=== PATIENT | female | born 1995 | race Caucasian/White ===

== ENCOUNTER 2021-06-19 07:34 | Inpatient (IN) ==
[2021-06-19] MEDS ORDERED: DINOPROSTONE 10 MG INSERT PV ONE (09:30)
[2021-06-19] MEDS ORDERED: OXYTOCIN 30 UNITS/500 ML BAG IV PRN (09:30)
[2021-06-19 10:02] LABS: Hematocrit (blood only) 36.2 % (37-47); Hemoglobin 11.5 g/dL (12.0-16.0); Mean Corpuscular Hemoglobin 28.8 pg (25-34); Mean Corpuscular Hgb Conc 31.8 g/dL (32-36); Mean Corpuscular Volume 90.5 fL (80-100); Mean Platelet Volume 10.8 fL (7.4-10.4); Platelet Count 219 K/uL (130-400); RDW Coefficient of Variation 15.3 % (11.5-14.5); RDW Standard Deviation 50.8 fL (36.4-46.3); White Blood Count 8.84 K/uL (4.8-10.8)
--- NOTE | 2021-06-19 10:58 | Obstetrical Progress Note ---
Date of Service June 19, 2021 Assessment & Plan (1) Post-dates : Plan: Induction for post dates FHR; CAT1 Ctx; Minimal VE; ft/thick/post Cervidil placed in vagina Admission and Anticipated Discharge Date Admission Date: June 19, 2021 Results & Data ([facility]) Vital Signs (Past 12 Hours) Vital Signs Temp Pulse Resp BP 06/19/21 07:57 89 131/81 06/19/21 07:51 36.7 C 18 131/81
--- NOTE | 2021-06-19 23:45 | Obstetrical Progress Note ---
Date of Service June 19, 2021 Assessment & Plan (1) Post-dates : Plan: Induction for post dates Cervidil removed VE; Unchanged pt tolerated pelvic exam poorly and would not do another Cervidil FHR; CAT1 Ctx; Q8-10 min Mild intensity Plan Reevaluate in the AM Admission and Anticipated Discharge Date Admission Date: June 19, 2021 Results & Data ([facility]) Vital Signs (Past 12 Hours) Vital Signs Temp Pulse Resp BP 06/19/21 22:32 36.6 C 75 18 131/85 06/19/21 18:59 36.9 C 18 06/19/21 18:55 36.9 C 86 18 136/74 06/19/21 15:04 36.9 C 85 18 129/75
[2021-06-20] MEDS ORDERED: DINOPROSTONE 10 MG INSERT PV ONE
[2021-06-20] MEDS ORDERED: BUTORPHANOL TARTRATE 1 MG/ML VIAL IV ONE (03:00)
[2021-06-20] MEDS ORDERED: BUTORPHANOL TARTRATE 1 MG/ML VIAL ONE (03:16)
[2021-06-20] MEDS: LACTATED RINGER'S 1,000 ML IV PRN ×5 (06:14→23:54)
[2021-06-20] MEDS ORDERED: BUPIVACAINE 0.25% 30 ML VIAL ONE ×2 (06:21→19:58)
[2021-06-20] MEDS ORDERED: fentaNYL citrate 100 MCG/2 ML VIAL ONE (06:21)
[2021-06-20] MEDS ORDERED: SODIUM CHLORIDE 0.9% INJ 10 ML VIAL ONE (06:21)
[2021-06-20] MEDS ORDERED: ePHEDrine sulfate 50 MG/ML AMP ONE (06:21)
[2021-06-20] MEDS ORDERED: fentaNYL 2MCG/ML ROPIVACAINE 1.25MG/ML 100 ML BAG EPI ONE (06:22)
[2021-06-20] MEDS ORDERED: PROMETHAZINE HCL 6.25 MG in SODIUM CHLORIDE 0.9% 50 ML IV PRN (07:17)
[2021-06-20] MEDS ORDERED: ONDANSETRON INJ 2 MG/ML 2 ML VIAL IV PRN (07:17)
[2021-06-20] MEDS ORDERED: NALOXONE HCL 0.4 MG/1 ML VIAL/CARP IV PRN (07:17)
[2021-06-20] MEDS ORDERED: ePHEDrine sulfate 50 MG/ML AMP IV PRN (07:17)
[2021-06-20] MEDS ORDERED: NALOXONE HCL 1 MG in SODIUM CHLORIDE 0.9% 1000ML 1,000 ML IV PRN (07:17)
[2021-06-20] MEDS ORDERED: NALBUPHINE HCL INJ 10 MG/ML AMP IV PRN (07:17)
[2021-06-20] MEDS ORDERED: diphenhydrAMINE 50 MG/ML VIAL IV PRN (07:17)
--- NOTE | 2021-06-20 07:19 | Anesthesiology Consultation ---
Date of Service June 20, 2021 Assessment & Plan Chart Review Chart Review: Patient NOT seen in Pre Admission Testing and Acceptable Risk for Labor Epidural Consults Requested none ASA ASA2 Proposed Anesthesia Anesthesia Type: Labor Epidural Risk / Benefits Reviewed With: PT / POA / Parent / Guardian, Accepts Plan and Informed Consent Obtained History Height/Weight Height: 5 ft 2 in Weight: 77.564 kg Allergies Allergy/AdvReac Type Severity Reaction Status Date / Time lactose Allergy Severe Unknown Verified 06/19/21 19:28 Medications Home Medications Medication Instructions Recorded Confirmed Last Taken prenat.vits,naz,tyg-uojc-jidol 1 tab PO DAILY 06/19/21 06/19/21 06/17/21 Active Medications Generic Name Dose Route Start Last Admin Trade Name Freq PRN Reason Stop Dose Admin Lactated Ringer's 1,000 mls @ 125 mls/hr 06/19/21 09:30 06/20/21 06:14 Lr IV 06/21/21 09:29 999 mls/hr .Q8H PRN Administration L&D Protocol Protocol Exercise / Class Metabolic Activity II 4-5 Yardwork/Stairs/Walk up hill Past Surgical History Surgical History (Updated 06/19/21 @ 11:34 by Sánchez Mcnamara RN) [place] teeth removed Past Anesthesia History No Hx of Anesthesia Complications and No Family Hx of Anesthesia Complications History of PONV No Hx of PONV and No Hx of Motion Sickness Social History Smoking Status: Former smoker tobacco type: cigarettes Do You Dip or Chew Tobacco: No Hx Alcohol Use: No Hx Substance Use: No Physical Exam Vital Signs Last Vital Signs Temp 36.9 C 06/20/21 06:58 Pulse 92 H 06/20/21 07:13 Resp 20 06/20/21 06:58 BP 129/80 06/20/21 06:58 Pulse Ox 99 06/20/21 07:13 ENMT Mouth: no dentition abnormality Thyromental Distance: > or= 3.5 Finger Breadths Mallampati Class: II Neck normal visual inspection Respiratory normal respiratory effort Auscultation: lungs clear to auscultation bilaterally Cardiovascular Rate/Rhythm: regular rate and regular rhythm Psychiatric Orientation: alert Testing Laboratory Results 06/19/21 09:52
--- NOTE | 2021-06-20 07:56 | Labor Progress Brief Note ---
Date of Service June 20, 2021 Assessment & Plan (1) Post-dates : Plan: Pt doing well Received epidural analgesia FHR; CAT1 CTx. 3-5min, irregular and mild intensity VE; 2/50/-3 Plan start Pitocin augmentation. pt agrees with recommendation Admission and Anticipated Discharge Date Admission Date: June 19, 2021 Results & Data ([facility]) Vital Signs (Past 12 Hours) Vital Signs Temp Pulse Resp BP Pulse Ox 06/20/21 07:52 89 117/65 06/20/21 07:48 101 H 99 06/20/21 07:47 85 122/73 06/20/21 07:43 89 99 06/20/21 07:42 92 H 131/71 06/20/21 07:40 93 H 129/73 06/20/21 07:38 96 H 132/77 98 06/20/21 07:36 105 H 137/85 06/20/21 07:34 85 136/87 06/20/21 07:33 90 98 06/20/21 07:28 108 H 98 06/20/21 07:23 123 H 96 06/20/21 07:18 117 H 100 06/20/21 07:13 92 H 99 06/20/21 07:08 76 99 06/20/21 07:03 85 100 06/20/21 06:58 36.9 C 84 20 129/80 97 06/20/21 06:53 82 97 06/20/21 06:48 88 100 06/20/21 06:43 84 98 06/20/21 06:38 91 H 98 06/20/21 06:33 89 98 06/20/21 06:28 100 H 99 06/20/21 06:23 112 H 100 06/20/21 06:18 104 H 96 06/20/21 06:16 36.4 C L 90 20 125/70 06/20/21 04:32 78 97 06/20/21 04:27 79 96 06/20/21 04:22 82 97 06/20/21 04:17 76 97 06/20/21 04:12 80 96 06/20/21 04:07 85 96 06/20/21 04:02 81 98 06/20/21 03:57 82 96 06/20/21 03:52 81 96 06/20/21 03:47 99 H 99 06/20/21 03:42 81 97 06/20/21 03:37 78 95 06/20/21 03:32 82 96 06/20/21 03:27 99 H 99 06/20/21 03:24 78 18 122/68 06/20/21 03:22 90 98 06/20/21 03:17 98 H 100 06/20/21 02:17 36.6 C 77 18 122/65 06/19/21 22:32 36.6 C 75 18 131/85
[2021-06-20] MEDS ORDERED: OXYTOCIN 30 UNITS/500 ML BAG IV PRN (09:38)
[2021-06-20] MEDS: fentaNYL 2MCG/ML ROPIVACAINE 1.25MG/ML 100 ML BAG EPI PRN ×3 (15:49→23:11)
--- NOTE | 2021-06-20 17:49 | Labor Progress Brief Note ---
Date of Service June 20, 2021 Assessment & Plan Admission and Anticipated Discharge Date Admission Date: June 19, 2021 Physical Exam Genitourinary: Manual OB Exam: + cervical dilation 6 cm, + cervical effacement 80% and + station -1 OB Exam Monitor Tracing: + external FHT monitor used, + external uterine monitor used, + category I and + normal FHT variability Results & Data ([facility]) Vital Signs (Past 12 Hours) Vital Signs Temp Pulse Resp BP Pulse Ox 06/20/21 17:44 83 138/78 06/20/21 17:43 88 99 06/20/21 17:38 84 99 06/20/21 17:33 88 100 06/20/21 17:28 92 H 100 06/20/21 17:23 99 H 100 06/20/21 17:18 92 H 100 06/20/21 17:13 89 142/83 H 100 06/20/21 17:08 88 100 06/20/21 17:03 90 100 06/20/21 16:58 89 99 06/20/21 16:53 87 100 06/20/21 16:48 89 100 06/20/21 16:44 36.8 C 81 18 136/83 06/20/21 16:43 88 98 06/20/21 16:38 78 99 06/20/21 16:33 86 98 06/20/21 16:28 79 98 06/20/21 16:23 83 98 06/20/21 16:18 86 98 06/20/21 16:14 78 20 124/76 06/20/21 16:13 80 98 06/20/21 16:08 87 97 06/20/21 16:03 85 100 06/20/21 15:58 89 99 06/20/21 15:53 88 100 06/20/21 15:48 93 H 100 06/20/21 15:45 93 H 126/86 06/20/21 15:43 82 98 06/20/21 15:38 78 100 06/20/21 15:33 85 100 06/20/21 15:28 83 98 06/20/21 15:23 81 100 06/20/21 15:18 79 100 06/20/21 15:15 85 139/79 06/20/21 15:13 102 H 100 06/20/21 15:12 36.6 C 88 20 151/90 H 06/20/21 15:08 104 H 99 06/20/21 15:03 92 H 98 06/20/21 14:58 85 99 06/20/21 14:53 97 H 100 06/20/21 14:48 90 100 06/20/21 14:44 93 H 123/75 06/20/21 14:43 86 100 06/20/21 14:38 90 100 06/20/21 14:33 98 H 100 06/20/21 14:28 96 H 99 06/20/21 14:23 92 H 100 06/20/21 14:18 97 H 99 06/20/21 14:13 93 H 100 06/20/21 14:08 82 100 06/20/21 14:04 85 20 123/70 06/20/21 14:03 86 100 06/20/21 13:58 86 100 06/20/21 13:53 87 99 06/20/21 13:50 88 130/64 06/20/21 13:48 92 H 100 06/20/21 13:43 80 98 06/20/21 13:38 89 100 06/20/21 13:35 85 114/72 06/20/21 13:33 83 99 06/20/21 13:28 89 100 06/20/21 13:23 87 99 06/20/21 13:19 82 116/73 06/20/21 13:18 83 99 06/20/21 13:13 97 H 98 06/20/21 13:08 97 H 99 06/20/21 13:04 36.9 C 108 H 20 126/79 06/20/21 13:03 103 H 98 06/20/21 12:58 95 H 98 06/20/21 12:53 97 H 98 06/20/21 12:50 95 H 130/78 06/20/21 12:48 99 H 98 06/20/21 12:43 101 H 98 06/20/21 12:38 116 H 98 06/20/21 12:33 36.8 C 112 H 20 117/72 97 06/20/21 12:28 99 H 97 06/20/21 12:23 98 H 97 06/20/21 12:18 114 H 116/72 97 06/20/21 12:13 104 H 98 06/20/21 12:08 99 H 98 06/20/21 12:03 118 H 20 121/78 97 06/20/21 11:58 98 H 98 06/20/21 11:53 110 H 97 06/20/21 11:48 103 H 122/72 98 06/20/21 11:43 100 H 98 06/20/21 11:38 103 H 96 06/20/21 11:33 107 H 124/77 97 06/20/21 11:28 118 H 96 06/20/21 11:23 113 H 96 06/20/21 11:19 106 H 122/77 06/20/21 11:18 104 H 97 06/20/21 11:13 103 H 97 06/20/21 11:08 99 H 97 06/20/21 11:04 101 H 126/71 06/20/21 11:03 99 H 97 06/20/21 10:58 108 H 98 06/20/21 10:53 97 H 99 06/20/21 10:49 111 H 119/77 06/20/21 10:48 111 H 98 06/20/21 10:43 103 H 99 06/20/21 10:38 102 H 100 06/20/21 10:34 107 H 113/72 06/20/21 10:33 94 H 99 06/20/21 10:28 111 H 99 06/20/21 10:23 94 H 99 06/20/21 10:20 88 118/74 06/20/21 10:18 92 H 99 06/20/21 10:13 99 H 100 06/20/21 10:08 101 H 100 06/20/21 10:04 37.2 C 99 H 20 127/61 06/20/21 10:03 96 H 99 06/20/21 09:58 107 H 100 06/20/21 09:53 107 H 100 06/20/21 09:49 94 H 171/85 H 06/20/21 09:48 97 H 100 06/20/21 09:43 96 H 100 06/20/21 09:38 88 99 06/20/21 09:34 81 113/61 06/20/21 09:33 86 99 06/20/21 09:28 82 98 06/20/21 09:23 86 99 06/20/21 09:19 89 109/59 L 06/20/21 09:18 92 H 98 06/20/21 09:13 84 100 06/20/21 09:08 86 99 06/20/21 09:05 88 18 111/58 L 06/20/21 09:03 92 H 99 06/20/21 08:58 83 99 06/20/21 08:53 87 100 06/20/21 08:49 83 113/60 06/20/21 08:48 90 99 06/20/21 08:43 87 99 06/20/21 08:38 88 98 06/20/21 08:35 87 117/64 06/20/21 08:33 91 H 99 06/20/21 08:28 88 98 06/20/21 08:23 84 99 06/20/21 08:19 86 109/65 06/20/21 08:18 86 100 06/20/21 08:13 86 99 06/20/21 08:08 84 100 06/20/21 08:04 83 110/61 06/20/21 08:03 86 100 06/20/21 07:58 84 99 06/20/21 07:57 85 18 114/61 06/20/21 07:53 90 99 06/20/21 07:52 89 117/65 06/20/21 07:48 101 H 99 06/20/21 07:47 85 122/73 06/20/21 07:43 89 99 06/20/21 07:42 92 H 131/71 06/20/21 07:40 93 H 129/73 06/20/21 07:38 96 H 132/77 98 06/20/21 07:36 105 H 137/85 06/20/21 07:34 85 136/87 06/20/21 07:33 90 98 06/20/21 07:28 108 H 98 06/20/21 07:23 123 H 96 06/20/21 07:18 117 H 100 06/20/21 07:13 92 H 99 06/20/21 07:08 76 99 06/20/21 07:03 85 100 06/20/21 06:58 36.9 C 84 20 129/80 97 06/20/21 06:53 82 97 06/20/21 06:48 88 100 06/20/21 06:43 84 98 06/20/21 06:38 91 H 98 06/20/21 06:33 89 98 06/20/21 06:28 100 H 99 06/20/21 06:23 112 H 100 06/20/21 06:18 104 H 96 06/20/21 06:16 36.4 C L 90 20 125/70
[2021-06-20] MEDS ORDERED: NURSING L&D Epidural Breakthrough Pain Update ONE (19:25)
--- NOTE | 2021-06-20 20:08 | Communication Note ---
Date of Service: June 20, 2021 Called by RN for pain. Checked and epidural has excellent temperature level to at least T6. Dosed epidural with 8cc of 0.25% bupivicane with significant improvement. Encouranged pushing PCEA button as needed for pain control.
[2021-06-21] MEDS ORDERED: METHYLERGONOVINE MALEATE 0.2 MG/ML AMP ONE (00:08)
--- NOTE | 2021-06-21 01:03 | Delivery Summary ---
Vaginal Delivery Summary Date of Service June 21, 2021
--- NOTE | 2021-06-21 01:06 | Delivery Summary ---
Vaginal Delivery Summary Date of Service June 21, 2021 Vaginal Delivery Summary Delivery Note live female BHASKAR over intact perineum with delayed cord clamping and Apgars 8/9 weight pending. Cord blood obtained followed by spontaneous delivery of intact placenta. Methergine 0.2 mg IM given for bleeding control and bladder emptied of 150 ml. neftali colored urine. No tears. EBL 300 ml. Final sponge and instrument count are correct. Mom and baby stable.
[2021-06-21] MEDS ORDERED: bisacodyL 10 MG SUPP PR PRN (01:08)
[2021-06-21] MEDS ORDERED: BENZOCAINE 20% AER SPR 82.5 GM CAN EXT PRN (01:08)
[2021-06-21] MEDS ORDERED: DIPHTHERIA/TETANUS/PERTUSSIS 0.5 ML SYR/VIAL IM ONE (01:08)
[2021-06-21] MEDS ORDERED: OXYTOCIN 30 UNITS/500 ML BAG IV PRN (01:08)
[2021-06-21] MEDS ORDERED: SUPERCREAM 0.870% 15 GM JAR EXT PRN (01:08)
[2021-06-21] MEDS ORDERED: METHYLERGONOVINE MALEATE 0.2 MG/ML AMP IM ONE (01:08)
[2021-06-21] MEDS ORDERED: ACETAMINOPHEN 325 MG TAB PO PRN (01:08)
[2021-06-21] MEDS ORDERED: HYDROCORTISONE ACETATE 25 MG SUPP PR PRN (01:08)
--- NOTE | 2021-06-21 01:12 | Delivery Summary ---
Vaginal Delivery Summary Date of Service June 21, 2021 Vaginal Delivery Summary Delivery Note live female BHASKAR over intact perineum with delayed cord clamping and Apgars 8/9 weight pending. Cord blood obtained followed by spontaneous delivery of intact placenta. Methergine 0.2 mg IM given for bleeding control and bladder empyed with strait cath of 150 ml. neftali colored urine. No tears. EBL 300 ml. Final sponge and instrument count are correct. Mom and baby stable.
[2021-06-21] MEDS: IBUPROFEN 600 MG TAB PO PRN ×3 (02:17→19:48)
[2021-06-21] MEDS: PRENATAL VITAMIN 1 TAB PO SCH (07:29)
[2021-06-21] MEDS: DOCUSATE SODIUM 100 MG CAP PO SCH ×2 (07:29→20:48)
[2021-06-21] MEDS: FERROUS SULFATE 325 MG TAB PO SCH (07:29)
[2021-06-21] MEDS ORDERED: NON-FORMULARY MEDICATION (Prenat.Vits,Cal,Min-Iron-Folic Tablet) PO SCH (09:00)
--- NOTE | 2021-06-21 09:42 | Anesthesia Procedure Note ---
Date of Service June 21, 2021 Anesthesia Post Epidural Note Vital Signs Vital Signs: Temp Pulse Resp BP Pulse Ox 37.1 C 98 H 18 119/77 97 06/21/21 03:00 06/21/21 03:00 06/21/21 03:00 06/21/21 03:00 06/21/21 03:00 Pain Intensity Lower Back: Pain Intensity: 4 Notes Mental Status: alert / awake / arousable and participated in evaluation Nausea / Vomiting: adequately controlled Pain: adequately controlled Airway Patency, RR, SpO2: stable & adequate BP & HR: stable & adequate Hydration State: stable & adequate Neuraxial Anesthesia: was administered and sensory block is resolving Anesthetic Complications: no major complications apparent Epidural: Removed without complications and With tip intact
[2021-06-22] MEDS: IBUPROFEN 600 MG TAB PO PRN (05:33)
[2021-06-22 06:51] LABS: Hematocrit (blood only) 29.2 % (37-47); Hemoglobin 9.3 g/dL (12.0-16.0); Mean Corpuscular Hemoglobin 28.8 pg (25-34); Mean Corpuscular Hgb Conc 31.8 g/dL (32-36); Mean Corpuscular Volume 90.4 fL (80-100); Mean Platelet Volume 10.3 fL (7.4-10.4); Platelet Count 181 K/uL (130-400); RDW Coefficient of Variation 15.9 % (11.5-14.5); RDW Standard Deviation 52.6 fL (36.4-46.3); Red Blood Count 3.23 M/uL (4.2-5.4); White Blood Count 11.72 K/uL (4.8-10.8)
[2021-06-22] MEDS: DOCUSATE SODIUM 100 MG CAP PO SCH (08:14)
[2021-06-22] MEDS: PRENATAL VITAMIN 1 TAB PO SCH (08:14)
[2021-06-22] MEDS: FERROUS SULFATE 325 MG TAB PO SCH (08:15)
--- NOTE | 2021-06-22 08:24 | Obstetrical Progress Note ---
Date of Service June 22, 2021 Subjective Ambulation: ambulating normally Voiding: no voiding problems Passing Gas:: Yes Diet Tolerance:: regular diet Lochia:: Small Feeding Type:: breast feeding Current Pain Level(1-10): 0 doing well plans for d/c today Review of Systems All systems reviewed & are unremarkable except as noted in HPI & below Physical Exam Abdomen soft and non-tender fundus firm neg edema neg Nellie's for d/c home Constitutional WD/WN, vitals as above comfortable Results & Data ([facility]) Vital Signs (Past 12 Hours) Vital Signs Temp Pulse Resp BP Pulse Ox 06/21/21 23:55 37.1 C 90 17 122/78 97 Laboratory Results Laboratory Results - last 72 hr 06/19/21 06/19/21 06/22/21 09:52 Unknown 06:23 WBC 8.84 11.72 H RBC 4.00 L 3.23 L Hgb 11.5 L 9.3 L Hct 36.2 L 29.2 L MCV 90.5 90.4 MCH 28.8 28.8 MCHC 31.8 L 31.8 L RDW Std Deviation 50.8 H 52.6 H RDW Coeff of Inder 15.3 H 15.9 H Plt Count 219 181 MPV 10.8 H 10.3 SARS-CoV-2, RNA, NAAT NEGATIVE
[2021-06-22] MEDS ORDERED: bisacodyL 5 MG TABEC PO SCH (20:00)
== END 2021-06-22 12:50 | disposition home or self-care (01) | DRG 807 ==
LOC: 4S1 07:34 → 4S2 06-21 03:01